=== PATIENT | female | born 1945 | race Two or more races ===

== ENCOUNTER 2017-10-12 15:46 | Emergency (ER) | payer OTHER ==
[~2017-10-12] VITALS: Ht 160 cm; Wt 93.9 kg
[2017-10-12] MEDS ORDERED: FOSAMAX70 MG (16:04)
[2017-10-12] MEDS ORDERED: TOPROL XL25 M1 (16:04)
[2017-10-12] MEDS ORDERED: LIPITOR20 MG (16:04)
[2017-10-12] MEDS ORDERED: GLUCOPHAGE XR500 MG (16:05)
[2017-10-12] MEDS ORDERED: ASPIR 8181 MG (16:05)
[2017-10-12] MEDS ORDERED: NEURONTIN300 MG (16:05)
[2017-10-12] MEDS ORDERED: AMARYL 4MG (16:05)
[2017-10-12] MEDS ORDERED: BUMEX (16:06)
== END 2017-10-12 23:39 | disposition home or self-care (01) ==
LOC: ER 15:46
DX: G45.9 Transient cerebral ischemic attack, unspecified (principal); R53.81 Other malaise

== ENCOUNTER 2023-09-14 12:50 | Outpatient (CLI) | payer OTHER ==
[~2023-09-14 12:50] MED LIST: AMARYL 4MG; ASPIR 8181 MG; BUMEX; FOSAMAX70 MG; GLUCOPHAGE XR500 MG; LIPITOR20 MG; NEURONTIN300 MG; TOPROL XL25 M1
== END 2023-09-14 12:56 | disposition home or self-care (01) ==
LOC: RAD 12:50
PROVIDERS: ATTEND Orthopaedic Surgery
DX: S82.61XD Displaced fracture of lateral malleolus of right fibula, subsequent encounter for closed fracture with routine healing (principal)

== ENCOUNTER 2023-09-20 14:10 | Outpatient (CLI) | payer OTHER | END 2023-09-20 14:21 | disposition home or self-care (01) | LOC: RAD 14:10 | PROVIDERS: ATTEND Orthopaedic Surgery | DX: M54.50 Low back pain, unspecified (principal); M25.551 Pain in right hip ==

== ENCOUNTER 2023-10-19 13:06 | Outpatient (CLI) | payer OTHER | END 2023-10-19 13:08 | disposition home or self-care (01) | LOC: NUCLEAR 13:06 | PROVIDERS: ATTEND Orthopaedic Surgery | DX: M81.0 Age-related osteoporosis without current pathological fracture (principal); M85.9 Disorder of bone density and structure, unspecified ==

== ENCOUNTER 2023-10-19 13:51 | Outpatient (CLI) | payer OTHER | END 2023-10-19 13:55 | disposition home or self-care (01) | LOC: TOM 13:51 | PROVIDERS: ATTEND Orthopaedic Surgery | DX: M25.551 Pain in right hip (principal) ==

== ENCOUNTER 2024-01-31 14:14 | Outpatient (CLI) | payer OTHER | END 2024-01-31 14:20 | disposition home or self-care (01) | LOC: RAD 14:14 | PROVIDERS: ATTEND Orthopaedic Surgery | DX: M17.11 Unilateral primary osteoarthritis, right knee (principal) ==